=== PATIENT | female | born 1985 | race Two or more races ===

== ENCOUNTER 2017-09-11 10:56 | Emergency (ER) | payer MEDICAID ==
[~2017-09-11] VITALS: Ht 162.6 cm; Wt 70.3 kg
[2017-09-11 11:03] VITALS: BP 124/69
[2017-09-11] MEDS ORDERED: KETOROLAC TROMETH 60MG/2ML VIAL IM ONE (14:45)
== END 2017-09-11 14:47 | disposition home or self-care (01) ==
LOC: ER 10:59
DX: S46.912A Strain of unspecified muscle, fascia and tendon at shoulder and upper arm level, left arm, initial encounter (principal); M54.2 Cervicalgia; X58.XXXA Exposure to other specified factors, initial encounter; Y93.89 Activity, other specified; Y92.89 Other specified places as the place of occurrence of the external cause; Y99.8 Other external cause status
CPT/HCPCS: 72052; 73030; 96372; 99284; J1885